=== PATIENT | male | born 1985 | race Caucasian/White ===

== ENCOUNTER 2020-06-01 16:10 | Observation (INO) | payer BC ==
[2020-06-01 17:02] LABS: Absolute Lymphocytes (CBC) 1.8 K/uL (0.7-4.9); Basophils % 0.8 % (0-1.3); Hematocrit 47.8 % (39.6-49.0); Lymphocytes % 17.3 % (15.3-44.8); RBC Red Blood Cell Count 5.62 M/uL (4.33-5.43)
[2020-06-01 17:04] LABS: Protime INR 0.97
[2020-06-01 17:08] LABS: Urine Blood NEGATIVE (NEG); Urine Glucose NEGATIVE (NEG); Urine Protein NEGATIVE (NEG); Urine Specific Gravity 1.015 (1.005-1.030)
[2020-06-01 17:09] LABS: Barbiturates NEGATIVE (NEGATIVE); Benzodiazepines NEGATIVE (NEGATIVE); Cocaine NEGATIVE (NEGATIVE); METHAMPHETAM NEGATIVE (NEGATIVE); Methadone NEGATIVE (NEGATIVE); Opiates NEGATIVE (NEGATIVE); Phencyclidine NEGATIVE (NEGATIVE); THC Cannibis NEGATIVE (NEGATIVE)
[2020-06-01 17:19] LABS: ALT/SGPT 36 U/L (12-78); AST/SGOT 19 U/L (15-37); Albumin 3.9 g/dL (3.4-5.0); Alkaline Phosphatase 155 U/L (45-117); BUN Blood Urea Nitrogen 13 mg/dL (7-18); Bicarbonate 28 mmol/L (21-32); Bilirubin Direct < 0.1 mg/dL (0-0.2); Bilirubin Total 0.2 mg/dL (0.2-1.0); Glucose Level 105 mg/dL (74-106); Magnesium 2.2 mg/dL (1.8-2.4); NT PRO-BNP 8 pg/mL (<125); Protein, Total 7.1 g/dL (6.4-8.2); Sodium Level 141 mmol/L (136-145); Troponin (Emerg Dept Use Only) < 0.02 ng/mL (0.0-0.045)
--- NOTE | 2020-06-01 17:42 | ER ---
Nurse's Notes [facility] Name: Roverto Coombs Age: 35 yrs Sex: Male : 1985 Arrival Date: 06/01/2020 Time: 16:13 Bed 20 Private MD: Diagnosis: Chest pain, unspecified Presentation: 06/01 16:13 Chief complaint: EMS states: 1.5 HR CHEST PAIN RADIATING TO LEFT SHOULDER AND LEFT JAW. bp Coronavirus screen: At this time, the client does not indicate any symptoms associated with coronavirus-19. Ebola Screen: No symptoms or risks identified at this time. Initial Sepsis Screen: Does the patient meet any 2 criteria? HR > 90 bpm. No. Patient's initial sepsis screen is negative. Does the patient have a suspected source of infection? No. Patient's initial sepsis screen is negative. Risk Assessment: Do you want to hurt yourself or someone else? Patient reports no desire to harm self or others. Onset of symptoms was June 01, 2020 at 14:30. Care prior to arrival: IV initiated. 18 GA, in the left antecubital area, Glucose check: 153. 16:13 Method Of Arrival: EMS: [facility] bp 16:13 Acuity: JIM 3 bp Triage Assessment: 16:15 General: Appears in no apparent distress. uncomfortable, Behavior is cooperative, bp appropriate for age, anxious. Pain: Complains of pain in chest. EENT: No deficits noted. Neuro: No deficits noted. Cardiovascular: Rhythm is sinus tachycardia Chest pain is described as mild, radiates to left jaw(s). Respiratory: No deficits noted. GI: No signs and/or symptoms were reported involving the gastrointestinal system. : No signs and/or symptoms were reported regarding the genitourinary system. Derm: No deficits noted. Musculoskeletal: No deficits noted. Historical: - Allergies: 16:15 No Known Allergies; bp - Home Meds: 16:15 Metformin Oral [Active]; losartan oral oral [Active]; pantoprazole 40 mg oral TbEC 1 bp tab once daily [Active]; 16:17 hydroxyzine HCl 25 mg Oral tab 1 tab 3 times per day [Active]; bp - PMHx: 16:15 Diabetes - NIDDM; High Cholesterol; Hypertension; GERD; bp 16:17 PTSD; bp - Immunization history:: Adult Immunizations up to date. - Social history:: Smoking status: Patient denies any tobacco usage or history of. Screenin:15 Abuse screen: Denies threats or abuse. Denies injuries from another. Nutritional bp screening: No deficits noted. Tuberculosis screening: No symptoms or risk factors identified. Fall Risk None identified. Assessment: 16:15 General: SEE TRIAGE NOTE. bp 16:54 Reassessment: Patient appears in no apparent distress at this time. No changes from bp previously documented assessment. Patient and/or family updated on plan of care and expected duration. Pain level reassessed. Patient is alert, oriented x 3, equal unlabored respirations, skin warm/dry/pink. ALL CURRENT ORDERS COMPLETED. 18:00 Reassessment: No changes from previously documented assessment. Patient and/or family bp updated on plan of care and expected duration. Pain level reassessed. Patient is alert, oriented x 3, equal unlabored respirations, skin warm/dry/pink. ADMIT IN PROCESS. 19:37 Reassessment: Patient appears in no apparent distress at this time. Patient and/or mg2 family updated on plan of care and expected duration. Pain level reassessed. Patient is alert, oriented x 3, equal unlabored respirations, skin warm/dry/pink. patient complained of dizziness. provider informed. 21:16 Reassessment: Erinn Lomax with [facility]" contacted stating that they are sg needing to speak with patient, but he is not answering his phone. pt reports he will call her back. no information given to Erinn at this time, awaiting patient consent prior to releasing information. pt does not consent after speaking with Erinn via telephone. 21:20 Reassessment: pt complaining of heart burn symptoms, Brandon MUIR notified, awaiting orders sg at this time. 23:36 Pain: Pain does not radiate. Pain began gradually. mg2 Vital Signs: 16:13 BP 154 / 112; Pulse 118; Resp 16; Temp 98; Pulse Ox 97% ; bp 16:54 BP 112 / 73; Pulse 83; Resp 22; Pulse Ox 98% ; bp 18:00 BP 123 / 89; Pulse 95; Resp 22; Pulse Ox 96% ; bp 19:38 BP 109 / 69; Pulse 95; Resp 18; Pulse Ox 99% on R/A; mg2 ED Course: 16:13 Patient arrived in ED. bp 16:14 Triage completed. bp 16:14 Jorge Garcia PA is PHCP. cp 16:14 Eliezer Franco MD is Attending Physician. cp 16:15 Arm band placed on. bp 16:15 Patient has correct armband on for positive identification. Bed in low position. Call bp light in reach. Side rails up X2. teletypesetter monitor on. Pulse ox on. NIBP on. 16:15 Maintain EMS IV. Dressing intact. Good blood return noted. Site clean \\T\\ dry. Gauge \\T\\ bp site: 18 GAUGE LEFT AC. Patient maintains SpO2 saturation greater than 95% on room air. 16:53 Edwar Monroe, RN is Primary Nurse. bp 17:14 XRAY Chest (1 view) In Process Unspecified. EDMS 17:41 Talita Franz MD is Hospitalizing Provider. cp 23:36 No provider procedures requiring assistance completed. Patient admitted, IV remains in mg2 place. 06/02 07:20 Primary Nurse role handed off by Edwar Monroe, MINDY sv Administered Medications: 06/01 16:45 Drug: NS 0.9% 1000 ml Route: IV; Rate: 1 bolus; Site: left antecubital; bp 23:41 Follow up: Response: No adverse reaction; IV Status: Completed infusion; IV Intake: mg2 1000ml 19:20 Drug: NS 0.9% 1000 ml Route: IV; Rate: 1 bolus; Site: left antecubital; mg2 23:42 Follow up: Response: No adverse reaction; IV Status: Completed infusion; IV Intake: mg2 1000ml 19:20 Drug: Meclizine 25 mg Route: PO; mg2 23:41 Follow up: Response: No adverse reaction mg2 21:25 Drug: Pepcid 20 mg Route: IVP; Site: right antecubital; sg 23:42 Follow up: Response: No adverse reaction mg2 Intake: 23:41 IV: 1000ml; Total: 1000ml. mg2 23:42 IV: 1000ml; Total: 2000ml. mg2 Outcome: 17:41 Decision to Hospitalize by Provider. cp 23:36 Admitted to ER Hold. Please see [facility] for further documentation. mg2 23:36 Condition: stable 23:36 Instructed on the need for admit. 06/02 12:32 Patient left the ED. ph Signatures: Dispatcher [employer] EDMS Katherine Meeks RN RN sv James Stanton, RN RN sg Ranjit, Prudence, RN RN ph Jorge Garcia PA PA cp Peltier, Brian, RN RN bp Arturo Pagan, RN RN mg2
--- NOTE | 2020-06-01 17:43 | EDPHYS ---
Physician Documentation [facility] Name: Roverto Coombs Age: 35 yrs Sex: Male : 1985 Arrival Date: 06/01/2020 Time: 16:13 Bed 20 Private MD: ED Physician Eliezer Franco HPI: 06/01 16:35 This 35 yrs old Male presents to ER via EMS with complaints of Chest Pain. cp 16:35 Onset: The symptoms/episode began/occurred today. cp 16:35 The patient or guardian reports chest pain that is located primarily in the anterior cp chest wall, left. The pain radiates to the left arm, left neck. Associated signs and symptoms: Pertinent positives: lower extremity pain, lightheadedness, Pertinent negatives: cough, lower extremity swelling, syncope. The chest pain is described as aching, a pressure. Duration: The patient or guardian reports a single episode, that is now resolved. Patient reports taking aspirin prior to arrival. Historical: - Allergies: 16:15 No Known Allergies; bp - Home Meds: 16:15 Metformin Oral [Active]; losartan oral oral [Active]; pantoprazole 40 mg oral TbEC 1 bp tab once daily [Active]; 16:17 hydroxyzine HCl 25 mg Oral tab 1 tab 3 times per day [Active]; bp - PMHx: 16:15 Diabetes - NIDDM; High Cholesterol; Hypertension; GERD; bp 16:17 PTSD; bp - Immunization history:: Adult Immunizations up to date. - Social history:: Smoking status: Patient denies any tobacco usage or history of. ROS: 16:35 Constitutional: Negative for body aches, chills, fever, poor PO intake. cp 16:35 Eyes: Negative for injury, pain, redness, and discharge. cp 16:35 Cardiovascular: Positive for chest pain, Negative for edema, palpitations. 16:35 Respiratory: Negative for cough, shortness of breath, wheezing. 16:35 Abdomen/GI: Negative for abdominal pain, vomiting, diarrhea, constipation. 16:35 Neuro: Negative for altered mental status, headache, syncope, weakness. 16:35 All other systems are negative. Exam: 16:35 ECG was reviewed by the Attending Physician. cp 16:40 Constitutional: The patient appears in no acute distress, alert, awake, cp non-diaphoretic, non-toxic, well developed, well nourished. 16:40 Head/Face: Normocephalic, atraumatic. cp 16:40 Eyes: Periorbital structures: appear normal, Conjunctiva: normal, no exudate, no injection, Sclera: no appreciated abnormality, Lids and lashes: appear normal, bilaterally. 16:40 ENT: External ear(s): are unremarkable, Nose: is normal, Mouth: Lips: moist, Oral mucosa: moist, Posterior pharynx: Airway: no evidence of obstruction, patent. 16:40 Neck: ROM/movement: is normal, is supple, no meningismus, no nuchal rigidity. 16:40 Chest/axilla: Inspection: normal, Palpation: is normal, no crepitus, no tenderness. 16:40 Cardiovascular: Rate: tachycardic, Rhythm: regular, Heart sounds: murmur, not appreciated, Edema: is not appreciated, JVD: is not appreciated. 16:40 Respiratory: the patient does not display signs of respiratory distress, Respirations: normal, no use of accessory muscles, labored breathing, is not present, Breath sounds: are clear throughout, no decreased breath sounds, no stridor, no wheezing. 16:40 Abdomen/GI: Inspection: abdomen appears normal, Palpation: abdomen is soft and non-tender, in all quadrants. 16:40 Back: pain, is absent, ROM is normal. 16:40 Skin: no rash present. 16:40 Neuro: Orientation: to person, place \T\ time. Mentation: is normal, Motor: moves all fours, strength is normal, Sensation: no obvious gross deficits. Vital Signs: 16:13 BP 154 / 112; Pulse 118; Resp 16; Temp 98; Pulse Ox 97% ; bp 16:54 BP 112 / 73; Pulse 83; Resp 22; Pulse Ox 98% ; bp 18:00 BP 123 / 89; Pulse 95; Resp 22; Pulse Ox 96% ; bp 19:38 BP 109 / 69; Pulse 95; Resp 18; Pulse Ox 99% on R/A; mg2 MDM: 16:25 Patient medically screened. cp 17:00 Differential diagnosis: abnormal EKG, acute myocardial infarction, pericarditis, cp pulmonary embolus, thoracic aortic disection. 17:20 Data reviewed: vital signs, nurses notes, lab test result(s), EKG, radiologic studies, cp plain films. 17:20 HEART Score: History: Highly Suspicious (2), ECG: Normal (0), Age: < or = 45 years (0), cp Risk Factors: > or = 3 Risk factors for atherosclerotic disease (2), [Hypercholesterolemia] [Hypertension] [DM] Troponin: < or = 1 x Normal Limit (0). Test interpretation: by ED physician or midlevel provider: ECG, plain radiologic studies. Counseling: I had a detailed discussion with the patient and/or guardian regarding: the historical points, exam findings, and any diagnostic results supporting the discharge/admit diagnosis, lab results, radiology results, the need for further work-up and treatment in the hospital. Physician consultation: Talita Franz MD was contacted at 17:20, regarding admission, to the telemetry unit. patient's condition. 06/01 16:34 Order name: Basic Metabolic Panel; Complete Time: 17:20 cp 06/01 16:34 Order name: CBC with Diff; Complete Time: 17:20 cp 06/01 17:20 Interpretation: Normal except: RBC 5.62. cp 06/01 16:34 Order name: LFT's; Complete Time: 17:20 cp 06/01 16:34 Order name: Magnesium; Complete Time: 17:20 cp 06/01 16:34 Order name: NT PRO-BNP; Complete Time: 17:20 cp 06/01 16:34 Order name: PT-INR; Complete Time: 17:20 cp 06/01 16:34 Order name: Troponin (emerg Dept Use Only); Complete Time: 17:20 cp 06/01 16:34 Order name: UDS; Complete Time: 17:20 cp 06/01 16:50 Order name: Urine Dipstick--Ancillary (enter results); Complete Time: 17:20 em1 06/01 17:29 Order name: Basic Metabolic Panel [facility] 06/01 17:29 Order name: Basic Metabolic Panel [facility] 06/01 17:29 Order name: CBC with Automated Diff [facility]TN 06/01 17:29 Order name: CBC with Automated Diff [facility] 06/01 16:34 Order name: XRAY Chest (1 view) 06/01 16:34 Order name: EKG; Complete Time: 16:35 cp 06/01 17:29 Order name: CONS Physician Consult [facility]TN 06/01 17:29 Order name: Heart Healthy [facility] 06/01 17:29 Order name: Echo with Doppler [facility]TN 06/01 17:29 Order name: Lipid Profile [facility] 06/01 17:29 Order name: Lipid Profile [facility] 06/01 17:29 Order name: Troponin I [facility] 06/01 17:29 Order name: Troponin I [facility] 06/01 17:29 Order name: Troponin I [facility] 06/01 17:41 Order name: COVID-19 iw 06/01 17:51 Order name: SARS-COV-2 RT PCR [facility] 06/01 16:34 Order name: Cardiac monitoring; Complete Time: 16:53 cp 06/01 16:34 Order name: EKG - Nurse/Tech; Complete Time: 16:54 cp 06/01 16:34 Order name: IV Saline Lock; Complete Time: 16:54 cp 06/01 16:34 Order name: Labs collected and sent; Complete Time: 16:54 cp 06/01 16:34 Order name: O2 Per Protocol; Complete Time: 16:54 cp 06/01 16:34 Order name: O2 Sat Monitoring; Complete Time: 16:54 cp 06/01 16:34 Order name: Urine Dipstick-Ancillary (obtain specimen); Complete Time: 16:49 cp 06/01 17:29 Order name: EKG Electrocardiogram [facility] 06/01 17:29 Order name: EKG Electrocardiogram [facility] EC:35 Rate is 90 beats/min. Rhythm is regular. [place] interval is normal. QRS interval is normal. cp QT interval is normal. T waves are Inverted in lead aVR. Interpreted by me. Reviewed by me. Administered Medications: 16:45 Drug: NS 0.9% 1000 ml Route: IV; Rate: 1 bolus; Site: left antecubital; bp 23:41 Follow up: Response: No adverse reaction; IV Status: Completed infusion; IV Intake: mg2 1000ml 19:20 Drug: NS 0.9% 1000 ml Route: IV; Rate: 1 bolus; Site: left antecubital; mg2 23:42 Follow up: Response: No adverse reaction; IV Status: Completed infusion; IV Intake: mg2 1000ml 19:20 Drug: Meclizine 25 mg Route: PO; mg2 23:41 Follow up: Response: No adverse reaction mg2 21:25 Drug: Pepcid 20 mg Route: IVP; Site: right antecubital; sg 23:42 Follow up: Response: No adverse reaction mg2 Disposition: 06/02 12:50 Co-signature as Attending Physician, Eliezer Franco MD I agree with the assessment and kdr plan of care. Disposition: 06/01/20 17:41 Hospitalization ordered by Talita Franz for Observation. Preliminary diagnosis is Chest pain, unspecified. - Bed requested for [facility] ER HOLD. - Status is Observation. ph - Condition is Stable. - Problem is new. - Symptoms have improved. Signatures: Dispatcher [employer] EDMS Cheryl Mckeon RN MINDY James Stanton, RN RN Eliezer Ji MD MD kdr Prudence Church RN RN ph Jorge Garcia PA PA Edwar Montiel, RN RN bp Arturo Pagan, RN RN mg2 Corrections: (The following items were deleted from the chart) 06/01 16:59 16:35 CORONAVIRUS+MR.LAB.BRZ ordered. EDTN EDTN 20:05 17:41 Hospitalization Ordered by Talita Franz MD for Observation. Preliminary diagnosis is Chest pain, unspecified. Bed requested for Telemetry/MedSurg (observation). Status is Observation. Condition is Stable. Problem is new. Symptoms have improved. cp 06/02 12:32 06/01 20:05 06/01/2020 17:41 Hospitalization Ordered by Talita Franz MD for ph Observation. Preliminary diagnosis is Chest pain, unspecified. Bed requested for [facility] ER HOLD. Status is Observation. Condition is Stable. Problem is new. Symptoms have improved. mw 06/02 20:43 20:40 Onset: The symptoms/episode began/occurred today, cp cp
[2020-06-01] MEDS: ENOXAPARIN 40 MG/0.4 ML SQ SCH (18:00)
--- NOTE | 2020-06-01 18:12 | RAD REPORT ---
EXAM DESCRIPTION: Domenica Single View06/01/2020 5:14 pm CLINICAL HISTORY: Chest pain COMPARISON: none FINDINGS: The lungs appear clear of acute infiltrate. The heart is normal size IMPRESSION: No acute abnormalities displayed
[2020-06-01] MEDS ORDERED: MECLIZINE HCL 12.5 MG TAB ONE (19:22)
[2020-06-01] MEDS ORDERED: NA CHLORIDE 0.9% 1,000 ML ONE (19:22)
[2020-06-01] MEDS: METOPROLOL TAR 50 MG TAB PO SCH (21:00)
[2020-06-01] MEDS ORDERED: FAMOTIDINE 20 MG/2 ML VIAL IV ONE (21:42)
[2020-06-01 23:41] VITALS: BMI 31.4
[2020-06-02] MEDS ORDERED: METOPROLOL TAR 50 MG TAB ONE (00:45)
[2020-06-02] MEDS ORDERED: ENOXAPARIN 40 MG/0.4 ML SQ ONE (00:45)
[2020-06-02] MEDS: ENOXAPARIN 40 MG/0.4 ML SQ SCH (00:57)
[2020-06-02] MEDS: METOPROLOL TAR 50 MG TAB PO SCH (00:58)
[2020-06-02 05:31] LABS: BUN Blood Urea Nitrogen 10 mg/dL (7-18); Bicarbonate 26 mmol/L (21-32); Glucose Level 89 mg/dL (74-106); HDL Cholesterol 31 mg/dL (40-60); LDL Cholesterol, Calculated 54 (<130); Potassium 3.6 mmol/L (3.5-5.1); Sodium Level 143 mmol/L (136-145); Troponin I < 0.02 ng/mL (0.0-0.045)
[2020-06-02 05:53] LABS: Absolute Lymphocytes (CBC) 3.6 K/uL (0.7-4.9); Hematocrit 42.6 % (39.6-49.0); Lymphocytes % 38.5 % (15.3-44.8); MPV 8.8 fL (7.6-11.3); RBC Red Blood Cell Count 4.94 M/uL (4.33-5.43)
--- NOTE | 2020-06-02 06:19 | EKG ---
Test Date: 2020-06-01 Test Time: 16:26:47 Cnc Machine Setter: BP MEASUREMENT RESULTS: Intervals: Rate: 90 [place]: 124 QRSD: 84 QT: 336 QTc: 411 [place]: P: 56 AZ: 124 QRS: 10 T: 18 INTERPRETIVE STATEMENTS: Normal sinus rhythm with sinus arrhythmia Normal ECG No previous ECG available for comparison Electronically Signed On 06-02-20 06:18:00 POWER SYSTEM DISPATCHER by Alexandre Agudelo
[2020-06-02] MEDS ORDERED: INFLUENZA VACCINE (for 3y+) 0.5 ML DOSE IMVAC ONE (08:00)
[2020-06-02 08:09] VITALS: BP 95/64; TEMP 97.4
[2020-06-02 08:22] VITALS: O2SAT 98
[2020-06-02] MEDS ORDERED: REGADENOSON 0.4 MG/5 ML SYR IV ONE (08:54)
--- NOTE | 2020-06-02 08:59 | P.HP ---
Certification for Inpatient Patient admitted to: Observation With expected LOS: <2 Midnights Patient will require the following post-hospital care: None Practitioner: I am a practitioner with admitting privileges, knowledge of patient current condition, hospital course, and medical plan of care. Services: Services provided to patient in accordance with Admission requirements found in Title 42 Section 412.3 of the Code of Federal Regulations Patient History Date of Service: 06/01/20 Reason for admission: Chest pressure/SVT History of Present Illness: Patient is a 35-year-old gentleman who came to the hospital with chest pressure. 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 Patient felt pressure on his chest. He felt like there was someone sitting on him. Patient stated that is out will watch stated that he was tachycardic. He had a pulse oximeter and he checked it which revealed his heart rate was 150. He was able the come all and and go to the hospital here. He is living in [place] but was raised in [place]. He has never had any cardiac issues but he has a family history. Patient states that the pressure continued until he got to the hospital. He does not drink any caffeine and he does not eat any thing that is known to cause stimulants. Denies any drug use. He came to the hospital for further evaluation. Patient is has some stress as is 12 or old did try to commit suicide about 2 weeks ago. However, at that time that his symptoms started he did not feel any stress and was relaxing. He also has been using hormones as he is trying to have another child with his new . Patient also has multiple risk factors including dyslipidemia, hypertension, diabetes. Allergies No Known Allergies Allergy (Unverified 06/01/20 18:07) - Past Medical/Surgical History Has patient received pneumonia vaccine in the past: No -: Hypertension -: Diabetes -: Dyslipidemia Past Surgical History: Patient denies surgical history - Family History Father Family History: Reviewed- Non-Contributory - Social History Smoking Status: Unknown if ever smoked Alcohol use: No CD- Drugs: No Place of Residence: Home Review of Systems 10-point ROS is otherwise unremarkable Physical Examination - Vital Signs Temperature: 97.4 F Blood Pressure: 95/64 Pulse: 68 Respirations: 18 Pulse Ox (%): 97 - Physical Exam General: Alert, In no apparent distress, Oriented x3 HEENT: Atraumatic, PERRLA, Mucous membr. moist/pink, EOMI, Sclerae nonicteric Neck: Supple, 2+ carotid pulse no bruit, No LAD, Without JVD or thyroid abnormality Respiratory: Clear to auscultation bilaterally, Normal air movement Cardiovascular: Regular rate/rhythm, Normal S1 S2, No murmurs Gastrointestinal: Normal bowel sounds, Soft and benign, Non-distended, No tenderness Musculoskeletal: No clubbing, No swelling, No tenderness Integumentary: No rashes Neurological: Normal gait, Normal speech, Normal strength at 5/5 x4 extr, Normal tone, Normal affect Lymphatics: No axilla or inguinal lymphadenopathy - Studies Laboratory Data (last 24 hrs) 06/01/20 16:42: PT 11.5, INR 0.97 06/01/20 16:42: WBC 10.7, Hgb 16.3, Hct 47.8, Plt Count 256 06/01/20 16:42: Sodium 141, Potassium 4.0, BUN 13, Creatinine 0.89, Glucose 105, Magnesium 2.2, Total Bilirubin 0.2, AST 19, ALT 36, Alkaline Phosphatase 155 H Assessment & Plan - Problems (Diagnosis) (1) SVT (supraventricular tachycardia) Current Visit: Yes Status: Acute (2) Chest pressure Current Visit: Yes Status: Acute (3) Hypertension Current Visit: Yes Status: Acute (4) Dyslipidemia Current Visit: Yes Status: Acute (5) Diabetes type 2, controlled Current Visit: Yes Status: Acute - Plan 1. Serial troponins and EKG 2. Cardiology consultation 3. Echocardiogram and stress test 4. Anti-platelet therapy, anti coagulation, beta-ricardo, statin, and O2 as needed 5. IV morphine for pain 6. Nitro p.r.n. Discharge Plan: Home Plan to discharge in: 24 Hours - Advance Directives Does patient have a Living Will: No Does patient have a Durable POA for Healthcare: No - Code Status/Comfort Care Code Status Assessed: Yes Code Status: Full Code Critical Care: No Time Spent Managing PTS Care (In Minutes): 45
[2020-06-02] MEDS ORDERED: ASPIRIN EC 81 MG TAB PO SCH (09:00)
[2020-06-02] MEDS ORDERED: FAMOTIDINE 20 MG/2 ML VIAL IV SCH (09:00)
--- NOTE | 2020-06-02 09:00 | P.HP ---
Patient History Allergies No Known Allergies Allergy (Unverified 06/01/20 18:07) - Past Medical/Surgical History Has patient received pneumonia vaccine in the past: No - Social History Smoking Status: Unknown if ever smoked Place of Residence: Home Physical Examination - Vital Signs Temperature: 97.4 F Blood Pressure: 95/64 Pulse: 68 Respirations: 18 Pulse Ox (%): 97 - Studies Laboratory Data (last 24 hrs) 06/01/20 16:42: PT 11.5, INR 0.97 06/01/20 16:42: WBC 10.7, Hgb 16.3, Hct 47.8, Plt Count 256 06/01/20 16:42: Sodium 141, Potassium 4.0, BUN 13, Creatinine 0.89, Glucose 105, Magnesium 2.2, Total Bilirubin 0.2, AST 19, ALT 36, Alkaline Phosphatase 155 H Assessment & Plan - Advance Directives Does patient have a Living Will: No Does patient have a Durable POA for Healthcare: No
[2020-06-02] MEDS ORDERED: FAMOTIDINE 20 MG/2 ML VIAL IV ONE (09:23)
[2020-06-02] MEDS ORDERED: ASPIRIN EC 81 MG TAB PO ONE (09:24)
--- NOTE | 2020-06-02 10:45 | P.DS ---
Discharge Date: 06/02/20 Disposition: ROUTINE DISCHARGE Discharge Condition: GOOD Reason for Admission: Chest pressure/SVT Consultations: Cardiology - Problems (1) SVT (supraventricular tachycardia) Status: Acute (2) Chest pressure Status: Acute (3) Hypertension Status: Acute (4) Dyslipidemia Status: Acute (5) Diabetes type 2, controlled Status: Acute Brief History of Present Illness: Patient is a 35-year-old gentleman who came to the hospital with chest pressure. 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 Patient felt pressure on his chest. He felt like there was someone sitting on him. Patient stated that is out will watch stated that he was tachycardic. He had a pulse oximeter and he checked it which revealed his heart rate was 150. He was able the come all and and go to the hospital here. He is living in [place] but was raised in [place]. He has never had any cardiac issues but he has a family history. Patient states that the pressure continued until he got to the hospital. He does not drink any caffeine and he does not eat any thing that is known to cause stimulants. Denies any drug use. He came to the hospital for further evaluation. Patient is has some stress as is 12 or old did try to commit suicide about 2 weeks ago. However, at that time that his symptoms started he did not feel any stress and was relaxing. He also has been using hormones as he is trying to have another child with his new . Patient also has multiple risk factors including dyslipidemia, hypertension, diabetes. Hospital Course: Patient refused to have any aggressive workup done. We were going to do a stress test but he did not want this done and got really anxious while we were getting ready to push the chemical. Echocardiogram did not reveal any abnormalities. It appears patient has anxiety disorder. This is causing his tachyarrhythmia. He could have some underlying cardiac disease but he was not wanting to get tested. At this time patient is stable for discharge home with outpatient followup back in his hometown in [place]. Vital Signs/Physical Exam: Temp Pulse Resp BP Pulse Ox 97.4 F 68 18 95/64 97 06/02/20 08:59 06/02/20 08:59 06/02/20 08:59 06/02/20 08:59 06/02/20 08:59 General: Alert, In no apparent distress, Oriented x3 Laboratory Data at Discharge: WBC 9.2 K/uL (4.3-10.9) D 06/02/20 05:01 Hgb 14.3 g/dL (13.6-17.9) 06/02/20 05:01 Hct 42.6 % (39.6-49.0) 06/02/20 05:01 Plt Count 227 K/uL (152-406) 06/02/20 05:01 PT 11.5 SECONDS (9.5-12.5) 06/01/20 16:42 INR 0.97 06/01/20 16:42 Sodium 143 mmol/L (136-145) 06/02/20 05:01 Potassium 3.6 mmol/L (3.5-5.1) 06/02/20 05:01 BUN 10 mg/dL (7-18) 06/02/20 05:01 Creatinine 0.71 mg/dL (0.55-1.3) 06/02/20 05:01 Glucose 89 mg/dL (74-106) 06/02/20 05:01 Magnesium 2.2 mg/dL (1.8-2.4) 06/01/20 16:42 Total Bilirubin 0.2 mg/dL (0.2-1.0) 06/01/20 16:42 AST 19 U/L (15-37) 06/01/20 16:42 ALT 36 U/L (12-78) 06/01/20 16:42 Alkaline Phosphatase 155 U/L (45-117) H 06/01/20 16:42 Troponin I < 0.02 ng/mL (0.0-0.045) 06/02/20 05:01 Triglycerides 158 mg/dL (<150) H 06/02/20 05:01 Cholesterol 117 mg/dL (<200) 06/02/20 05:01 HDL Cholesterol 31 mg/dL (40-60) L 06/02/20 05:01 Cholesterol/HDL Ratio 3.77 06/02/20 05:01 Home Medications: Metformin HCl [Glucophage*] 500 mg PO DAILY WITH BREAKFAST 06/02/20 Metoprolol Tartrate [Lopressor*] 25 mg PO BID #60 tab 06/02/20 Pravastatin Sodium 20 mg PO DAILY 06/02/20 New Medications: Metoprolol Tartrate [Lopressor*] 25 mg PO BID #60 tab Patient Discharge Instructions: OK TO DC IV AND DC HOME. FOLLOW-UP WITH PRIMARY CARE PROVIDER IN 1-2 WEEKS. FOLLOW-UP WITH CARDIOLOGY IN 1-2 WEEKS. RETURN TO THE ER IF symptoms worsen. CALL or TEXT DR. HENDERSON AT [phone] IF ANY QUESTIONS REGARDING HOSPITAL STAY. PLEASE CALL THE FLOOR AT [phone] IF ANY MEDICATION OR NURSING QUESTIONS. Diet: ADA (Heart healthy diet) Activity: Fall precautions Followup: Alexandre Agudelo MD [ACTIVE - CAN ADMIT] - Unknown,U [Primary Care Provider] - Time spent managing pt's care (in minutes): 35
[2020-06-02] MEDS ORDERED: METFORMIN HCL 500 MG TAB PO ONE (11:05)
[2020-06-02] MEDS ORDERED: ATORVASTATIN 10 MG TAB PO ONE (11:06)
[2020-06-02] MEDS ORDERED: METFORMIN HCL 500 MG TAB ONE (11:35)
--- NOTE | 2020-06-02 14:40 | ECHO ---
HEIGHT: 5 ft 9 in WEIGHT: 213 lb 0 oz DATE OF STUDY: 06/02/[address]: Talita Franz MD 2-DIMENSIONAL: YES M.MODE: YES DOPPLER: YES COLOR FLOW: YES TDS: PORTABLE: DEFINITY: BUBBLE STUDY: DIAGNOSIS: CHEST PAIN CARDIAC HISTORY: CATHERIZATION: NO SURGERY: NO PROSTHETIC VALVE: NO PACEMAKER: NO MEASUREMENTS (cm) DIASTOLIC (NORMALS) SYSTOLIC (NORMALS) IVSd 0.9 (0.6-1.2) LA Diam 3.2 (1.9-4.0) LVEF 68% LVIDd 4.6 (3.5-5.7) LVIDs 2.8 (2.0-3.5) %FS 38% LVPWd 1.0 (0.6-1.2) Ao Diam 3.2 (2.0-3.7) 2 DIMENSIONAL ASSESSMENT: RIGHT ATRIUM: NORMAL LEFT ATRIUM: NORMAL RIGHT VENTRICLE: NORMAL LEFT VENTRICLE: NORMAL TRICUSPID VALVE: NORMAL MITRAL VALVE: NORMAL PULMONIC VALVE: NORMAL AORTIC VALVE: NORMAL PERICARDIAL EFFUSION: NONE AORTIC ROOT: NORMAL LEFT VENTRICULAR WALL MOTION: DOPPLER/COLOR FLOW: COMMENTS: NORMAL 2-DIMENSIONAL ECHOCARDIOGRAM WITH DOPPLER. NO WALL MOTION ABNORMALITY. NO EFFUSION. TECHNOLOGIST: ANDRESSA BAUGH
--- NOTE | 2020-06-03 17:20 | CON ---
Date of Consultation: 06/02/[address] Franz's service on 06/01/2020. I saw the patient on 06/02/2020. Reason For Consultation: Atypical chest pain, palpitations. 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 While he was [place], he had an episode of tachycardia at a rate of 150 with dizziness and hypotension as well as diaph oresis. Had some chest pain that was mostly in the left lateral arm as well as the left leg. No jamshid sea, vomiting. Denied PND, orthopnea. Denied any syncope. Had palpitation. Denied any fever or ch ills or cough. All his workup so far including chest x-ray, EKG and laboratory evaluations were norm al. Past Medical History: Include hypertension, diabetes, and dyslipidemia. Allergies: NONE. Review of Systems: Negative. Social History: Negative. Family History: Noncontributory. Medications: At home include Pravachol, metformin, and metoprolol. Physical Examination: Vital Signs: Stable. He was afebrile. Physical examination was normal otherwise. Impression And Plan: Most likely orthostatic hypotension or an arrhythmia. Certainly could be supra ventricular tachycardia or atrial flutter or fibrillation causing the hypotension. He has ruled out for an [place]. The EKG is normal. His chest x-ray is normal. He is asymptomatic right now. Echocardio gram which was ordered by Dr. Brandon is perfectly normal without any wall motion abnormalities or peric ardial effusion. I think the patient can go home today. He needs to continue his metoprolol and inc rease it on an as-needed basis if he has any arrhythmias. He should continue his metformin and Prava chol. He lives out of town and I think whenever he goes home he should have an event monitor to rule out SVT or atrial flutter. He probably would benefit from having a stress test as well. That was d iscussed with the patient himself and Dr. Franz. ILSA/VLADIMIR Voice ID: [id number] Report ID: [id number]
== END 2020-06-02 12:00 | disposition home or self-care (01) ==
LOC: ER 16:10 → ERHOLD 17:27
PROVIDERS: ADMIT Hospitalist; ATTEND Hospitalist
DX: I47.1 Supraventricular tachycardia (principal); R07.89 Other chest pain; I10 Essential (primary) hypertension; E11.9 Type 2 diabetes mellitus without complications; E78.5 Hyperlipidemia, unspecified; Z79.84 Long term (current) use of oral hypoglycemic drugs; Z20.822 Contact with and (suspected) exposure to COVID-19
CPT/HCPCS: 96361; 93005; 93306; 85025 ×2; 80048 ×2; 36415; 83735; 85610; 80061; 80076; 80307 ×8; 81003; 84484 ×3; 83880; 71045; 96374; 99285; U0003; J1650; J2785; J7030